=== PATIENT | female | born 1955 | race Caucasian/White ===

== ENCOUNTER → 2017-12-30 14:45 | Day surgery (SDC) | payer MEDICARE, MEDICAID ==
--- NOTE | 2017-12-30 07:56 | HP ---
CC: Silvino Pop MD * ADMITTING HISTORY AND PHYSICAL: DATE OF ADMISSION: 12/30/17 ADMITTING DIAGNOSES: 1. Hematuria. 2. Multiple calculi, right ureter. 3. Right hydronephrosis. PLANNED PROCEDURE: Right ureteroscopy, possible laser and stent insertion. SURGEON: Dr. Teresa. HISTORY OF PRESENT ILLNESS: Roz Diaz is a 62-year-old lady, who was referred by Dr. Pop for microscopic hematuria. Initially, she had a renal sonogram done at [facility], which was reported as normal. She was then evaluated for an episode for gross hematuria and on cystoscopy, I could see hematuria coming from the right ureteral orifice. Because of this, CT urogram was obtained, which reveals right hydronephrosis secondary to multiple calculi in the right distal ureter. PAST MEDICAL HISTORY: Significant for cervical carcinoma, treated with radiation therapy in 1989 and recent autoimmune issues for which she has been evaluated by Dr. Pop. PAST SURGICAL HISTORY: Significant for fusion of the lumbar spine and cervical spine, hysterectomy, and bowel resection. MEDICATIONS: On admission: 1. Meloxicam 7.5 mg daily. 2. Gabapentin 100 mg daily. 3. Imodium p.r.n. ALLERGIES AND INTOLERANCES: PENICILLIN, FLEXERIL, SULFA, HYDROCODONE, METHADONE , PROPOXYPHENE. SOCIAL HISTORY: Smoking history: She has a chronic [id number] smoking history. REVIEW OF SYSTEMS: She denies any chest pain or shortness of breath. There is no history of diabetes mellitus or any other major systemic illness. PHYSICAL EXAMINATION GENERAL: Reveals a pleasant, uncomfortable, middle-aged lady. VITAL SIGNS: Blood pressure is 140/90, pulse 90 per minute, oxygen saturation 98% on room air. LUNGS: Clear bilaterally. CARDIOVASCULAR: Regular rate and rhythm. S1, S2. ABDOMEN: Soft with mild right flank tenderness. IMPRESSION: A 62-year-old lady with gross hematuria and right hydronephrosis secondary to multiple calculi in the right distal ureter. PLAN: Planned procedure is right ureteroscopy, possible laser and stent insertion. [id number]/[facility] #: [id number] MTDD
[~2017-12-30 14:45] MED LIST: Buffered Lidocaine 0.9% SYRIN* 5 ML/SYR SYRINGE INTRADERM ONE; Dexamethasone IV* 4 MG/ML 1 ML (4 MG) ONE; DiMENhydriNATE IV* 50 MG/ML VIAL IV PUSH PRN; EPHEDrine (Pressors)* 50 MG/ML VIAL ONE; Famotidine TAB* 20 MG ONE; Famotidine TAB* 20 MG PO ONE; Gentamicin ADULT (*) 120 MG in NS 0.9% 100 ML* 100 ML IVPB ONE; Iohexol 180 (CONTRAST) 10 ML SDV IV ONE; Levofloxacin 500 MG IVPREMIX(* 500 MG/100 ML BAG IVPB ONE; Lidocaine 2% PF * 5 ML VIAL ONE; Midazolam* 1 MG/ML 5 ML VIAL (5 MG) ONE; Morphine INJ* 2 MG/ML 1 ML CARPUJECT IV PRN; Naloxone* 0.4 MG/ML 1 ML VIAL IV PRN; Ondansetron INJ* 2 MG/ML VIAL ONE; PROCHLORPERAZINE INJ 5 MG/ML 2 ML VIAL IV PRN; Propofol* 10 MG/ML 20 ML BTL IV PUSH ONE; Scopolamine 1.5 mg* PATCH TRANSDERM PRN; Scopolamine PATCH Remove* 1 NOTE MISC PATCH OFF ONE; fentaNYL* 50 MCG/ML 2 ML VIAL (100 MCG VIAL) IV PRN; fentaNYL* 50 MCG/ML 2 ML VIAL (100 MCG VIAL) ONE; oxyCODONE/Acetamin 5/325 MG* TAB PO PRN
--- NOTE | 2017-12-30 19:27 | RAD ---
INDICATION: Right ureteroscopy, possible laser and stent insertion. COMPARISON: Comparison is made with a prior CT urogram from December 29, 2017. TECHNIQUE: 20 seconds of intermittent fluoroscopic guidance were provided and 6 spot films of the abdomen were centered on the right side. FINDINGS: There is partial opacification of the right renal collecting system. Subsequently there is placement of a double-J stent catheter on the right side. IMPRESSION: INTRAOPERATIVE CONTROL FILMS. CPT II Codes: G9500
[2017-12-30 20:17] VITALS: BP 137/77
--- NOTE | 2017-12-30 23:30 | OP ---
CC: Silvino Ppo MD * DATE OF OPERATION: 12/30/17 - [facility] DATE OF : 55 SURGEON: Timmy Teresa MD ANESTHESIOLOGIST: Dr. Bacon. ANESTHESIA: General. PRE-OP DIAGNOSIS: 1. Right hydronephrosis. 2. Multiple calculi, right distal ureter. POST-OP DIAGNOSIS: 1. Right hydronephrosis. 2. Multiple calculi, right distal ureter. 3. Stricture right distal ureter. OPERATIVE PROCEDURE: Cystoscopy, right retrograde pyelogram, right ureteroscopy , laser lithotripsy of multiple right ureteral calculi and right stent insertion. COMPLICATIONS: None. INDICATIONS: Roz Diaz is a 62-year-old lady who was evaluated for hematuria and noted to have multiple right ureteral obstructing calculi. OPERATIVE FINDINGS: 1. Stricture distal right ureter. 2. Multiple (6 to 7) calculi impacted in entire distal right ureter with severe hydronephrosis and hydroureter. STENT USED: An 8-Polish stent right ureter. POSTOPERATIVE CONDITION: Stable. DESCRIPTION OF PROCEDURE: After induction of general anesthesia, the patient was placed in dorsal lithotomy position. Sequential compression devices were in place and functioning. Initial cystoscopy revealed changes consistent with radiation therapy throughout the bladder. The right orifice was identified, initially a guidewire was advanced into the right orifice, however, the stones were noted to be completely impacted and multiple attempts at advancing the wire unsuccessful. Finally I introduced the ureteroscope and was able to advance the wire through the ureteroscope alongside the impacted calculi into the proximal ureter. Retrograde pyelogram revealed hydronephrosis and proximal hydroureter with a tortuous mid to distal ureter. The entire lower segment of the ureter appears involved with a stricture with multiple large calculi impacted in it. Using a 550 micron holmium laser, these were successfully broken up into multiple tiny fragments. A lot of the fragments flushed out during the procedure. An 8-Polish stent was then introduced and positioned under fluoroscopy with good proximal and distal positioning obtained. My plan is to leave the stent in for a few weeks and then to bring her back for a followup procedure to check on the stricture and see if this is going to require any balloon dilatation later on. The patient tolerated the procedure satisfactorily and was transferred back to recovery area in stable condition. [id number]/[facility] #: [id number] [facility]
== END | disposition home or self-care (01) ==
LOC: OR 14:45
PROVIDERS: ATTEND Urology
DX: N13.2 Hydronephrosis with renal and ureteral calculous obstruction (principal); N13.1 Hydronephrosis with ureteral stricture, not elsewhere classified; R31.0 Gross hematuria; Z85.41 Personal history of malignant neoplasm of cervix uteri; Z72.0 Tobacco use
CPT/HCPCS: 74420; A9270-GY; C1876; J1100; J1580; J1956; J2250; J2405; J2704; J3010

== ENCOUNTER 2018-01-10 07:42 | Day surgery (SDC) | payer MEDICARE, MEDICAID ==
[~2018-01-10 07:42] MED LIST changes: -Dexamethasone IV* 4 MG/ML 1 ML (4 MG) ONE; -DiMENhydriNATE IV* 50 MG/ML VIAL IV PUSH PRN; -EPHEDrine (Pressors)* 50 MG/ML VIAL ONE; -Famotidine TAB* 20 MG ONE; -Famotidine TAB* 20 MG PO ONE; -Gentamicin ADULT (*) 120 MG in NS 0.9% 100 ML* 100 ML IVPB ONE; +Gentamicin ADULT (*) 140 MG in NS 0.9% 100 ML* 100 ML IVPB ONE; -Iohexol 180 (CONTRAST) 10 ML SDV IV ONE; -Levofloxacin 500 MG IVPREMIX(* 500 MG/100 ML BAG IVPB ONE; -Lidocaine 2% PF * 5 ML VIAL ONE; -Midazolam* 1 MG/ML 5 ML VIAL (5 MG) ONE; -Morphine INJ* 2 MG/ML 1 ML CARPUJECT IV PRN; -Naloxone* 0.4 MG/ML 1 ML VIAL IV PRN; -Ondansetron INJ* 2 MG/ML VIAL ONE; -PROCHLORPERAZINE INJ 5 MG/ML 2 ML VIAL IV PRN; -Propofol* 10 MG/ML 20 ML BTL IV PUSH ONE; -Scopolamine 1.5 mg* PATCH TRANSDERM PRN; -Scopolamine PATCH Remove* 1 NOTE MISC PATCH OFF ONE; -fentaNYL* 50 MCG/ML 2 ML VIAL (100 MCG VIAL) IV PRN; -fentaNYL* 50 MCG/ML 2 ML VIAL (100 MCG VIAL) ONE; -oxyCODONE/Acetamin 5/325 MG* TAB PO PRN
[2018-01-10] MEDS ORDERED: Levofloxacin 500 MG IVPREMIX(* 500 MG/100 ML BAG IVPB ONE (07:50)
[2018-01-10] MEDS ORDERED: Buffered Lidocaine 0.9% SYRIN* 5 ML/SYR SYRINGE ONE (07:56)
[2018-01-10] MEDS ORDERED: fentaNYL* 50 MCG/ML 2 ML VIAL (100 MCG VIAL) ONE (08:34)
[2018-01-10] MEDS ORDERED: Midazolam* 1 MG/ML 2 ML VIAL (2 MG) ONE (08:34)
[2018-01-10] MEDS ORDERED: Propofol* 10 MG/ML 20 ML BTL IV PUSH ONE (08:37)
[2018-01-10] MEDS ORDERED: Lidocaine 2% PF * 5 ML VIAL ONE (08:38)
[2018-01-10] MEDS ORDERED: Iohexol 180 (CONTRAST) 10 ML SDV IV ONE (08:59)
[2018-01-10] MEDS ORDERED: oxyCODONE/Acetamin 5/325 MG* TAB PO PRN (09:13)
[2018-01-10] MEDS ORDERED: fentaNYL* 50 MCG/ML 2 ML VIAL (100 MCG VIAL) IV PRN (09:13)
[2018-01-10] MEDS ORDERED: Ondansetron INJ* 2 MG/ML VIAL IV PRN (09:13)
[2018-01-10] MEDS ORDERED: PROCHLORPERAZINE INJ 5 MG/ML 2 ML VIAL IV PRN (09:13)
[2018-01-10] MEDS ORDERED: Naloxone* 0.4 MG/ML 1 ML VIAL IV PRN (09:13)
[2018-01-10] MEDS ORDERED: HYDROmorphone INJ* 1 MG/ML CARPUJECT SYRINGE IV PRN (09:13)
[2018-01-10] MEDS ORDERED: EPHEDrine (Pressors)* 50 MG/ML VIAL ONE (09:53)
[2018-01-10] MEDS ORDERED: Ondansetron INJ* 2 MG/ML VIAL ONE (09:53)
[2018-01-10] MEDS ORDERED: Ketorolac INJ* 30 MG/ML 1 ML VIAL ONE (09:53)
[2018-01-10 11:28] VITALS: BP 129/73
--- NOTE | 2018-01-10 11:45 | RAD ---
CPT II Codes: G9500 INDICATION: Right ureteral stent exchange Fluoroscopic services provided for referring physician. 7 seconds of fluoroscopy time was used. 3 spot images demonstrates exchange of a right ureteral stent. IMPRESSION: Exchange of right ureteral stent.
--- NOTE | 2018-01-10 13:06 | OP ---
CC: Dr. Pop * DATE OF OPERATION: 01/10/18 - [facility] DATE OF : 55 SURGEON: Timmy Teresa MD ANESTHESIOLOGIST: Dr. Gay. ANESTHESIA: General PRE-OP DIAGNOSES: 1. Right hydronephrosis. 2. Multiple calculi, right ureter. POST-OP DIAGNOSES: 1. Right hydronephrosis. 2. Multiple calculi, right ureter. OPERATIVE PROCEDURE: 1. Cystoscopy. 2. Right retrograde pyelogram. 3. Right ureteroscopy. 4. Laser lithotripsy and removal of calculi from right ureter and right stent replacement. COMPLICATIONS: None. STENT USED: 8.5-Eritrean 28 cm silicone stent right ureter. OPERATIVE FINDINGS: 1. Stricture, right distal ureter. 2. Multiple right ureteral calculi. POSTOPERATIVE CONDITION: Stable. INDICATIONS: Roz Diaz is a 63-year-old lady who had been evaluated and noted to have multiple obstructing calculi in the right distal ureter associated with a stricture in the right distal ureter. DESCRIPTION OF PROCEDURE: After induction of general anesthesia, the patient was placed in dorsal lithotomy position. Sequential compression devices were in place and functioning. Initial cystoscopy revealed a previously placed stent exiting from the right orifice, this was grasped and removed intact without difficulty. Right retrograde pyelogram revealed right hydronephrosis. A 6-Eritrean semi- rigid ureteroscope was introduced into the right ureter. As noted previously, there was stricture involving the distal 3 to 4 cm of the right ureter with blanched avascular mucosa and multiple calculi and calculi fragments noted in the distal ureter. Using a 550 micron holmium laser, the stones were all broken up into smaller fragments and all of the fragments were removed. There may have been 1 or 2 smaller fragments, which migrated proximally, but other than all of the fragments that were visible were removed. An 8.5-Eritrean 28 cm silicone stent was introduced and positioned under fluoroscopy with good proximal and distal positioning obtained. The reason I chose to place an all silicone stent is because of the stricture and my concern that she may require potentially usp stenting because of risk of recurrent stricture after stent removal. The patient tolerated the procedure satisfactorily and was transferred back to the recovery area in stable condition. [id number]/[facility] #: [id number] [facility]
--- NOTE | 2018-01-10 14:04 | RAD ---
Indication: Postop right ureteral stent exchange. Flat plate of the abdomen demonstrates right ureteral stent in place. Calcification are noted in the right renal pelvis. Posterior fusion rods are in place. IMPRESSION: Right ureteral stent in place. Calcification overlying the right renal pelvis. Posterior fusion rods are noted.
== END 2018-01-10 11:48 | disposition home or self-care (01) ==
LOC: OR 07:42
PROVIDERS: ATTEND Urology
DX: N13.2 Hydronephrosis with renal and ureteral calculous obstruction (principal); F17.210 Nicotine dependence, cigarettes, uncomplicated; Z85.41 Personal history of malignant neoplasm of cervix uteri; F41.8 Other specified anxiety disorders; G89.29 Other chronic pain; D89.89 Other specified disorders involving the immune mechanism, not elsewhere classified
CPT/HCPCS: 74018; 74420; 82365; 88300; C1876; J1580; J1885; J1956; J2250; J2405; J2704; J3010

== ENCOUNTER → 2018-06-06 07:15 | Day surgery (SDC) | payer MEDICARE, MEDICAID ==
--- NOTE | 2018-06-03 13:14 | HP ---
CC: Dr. Pop * ADMITTING HISTORY AND PHYSICAL: DATE OF ADMISSION: 06/06/18 ADMITTING DIAGNOSES: 1. Right hydronephrosis. 2. Right renal calculus. PLANNED PROCEDURE: Right stent insertion and shockwave lithotripsy of right renal calculus. SURGEON: Dr. Teresa HISTORY OF PRESENT ILLNESS: Roz Diaz is a 63-year-old lady, who had previously been evaluated and treated for obstructing calculus in the right ureter. She was recently seen in followup and was noted to have right hydronephrosis and a 9 to 10 mm calculus in the right kidney, in the right renal pelvis. She complains of intermittent right flank pain and is now being brought in for treatment of the calculus. PAST MEDICAL HISTORY: Significant for: 1. Cervical cancer, diagnosed in 1989 and treated with radiation therapy. 2. History of renal calculi. 3. Rheumatoid arthritis. PAST SURGICAL HISTORY: Significant for right ureteroscopy, laser and stent in December of 2017, lower back fusion, and cervical spine fusion, and total abdominal hysterectomy, and bowel resection. MEDICATIONS: On admission, none. ALLERGIES AND INTOLERANCES: PENICILLIN, FLEXERIL, SULFA, HYDROCODONE, METHADONE , PROPOXYPHENE. FAMILY HISTORY: Negative for stone. SOCIAL HISTORY: Smoking history: She is a chronic smoker with a 40 plus pack year history of smoking. PHYSICAL EXAMINATION GENERAL: Reveals a pleasant, middle-aged lady. VITAL SIGNS: Blood pressure is 110/72, pulse 73 per minute, regular, oxygen saturation 98% on room air. LUNGS: Clear bilaterally. CARDIOVASCULAR: Regular rate and rhythm. S1, S2. ABDOMEN: Soft with right flank tenderness. IMPRESSION: A 63-year-old lady with a 9 to 10 mm calculus of the right renal pelvis with right hydronephrosis. PLAN: Planned procedure is right stent insertion and shockwave lithotripsy of right renal calculus. [id number]/[facility] #: [id number] MTDD
[~2018-06-06 07:15] MED LIST changes: +Acetaminophen TAB* 325 MG PO PRN; +Dexamethasone IV* 4 MG/ML 1 ML (4 MG) ONE; +DiMENhydriNATE IV* 50 MG/ML VIAL IV PUSH PRN; +DiMENhydriNATE IV* 50 MG/ML VIAL ONE; +Famotidine IV* 10 MG/ML 2 ML (20 mg) IV ONE; +Famotidine IV* 10 MG/ML 2 ML (20 mg) ONE; -Gentamicin ADULT (*) 140 MG in NS 0.9% 100 ML* 100 ML IVPB ONE; +HYDROmorphone INJ1* 1 MG/ML SYRINGE IV PRN; +Ketorolac INJ* 30 MG/ML 1 ML VIAL ONE; +Levofloxacin 500 MG IVPREMIX(* 500 MG/100 ML BAG IVPB ONE; +Lidocaine 2% PF * 5 ML VIAL ONE; +Midazolam* 1 MG/ML 2 ML VIAL (2 MG) ONE; +Naloxone* 0.4 MG/ML 1 ML VIAL IV PRN; +Ondansetron INJ* 2 MG/ML VIAL ONE; +Propofol* 10 MG/ML 20 ML BTL IV PUSH ONE; +fentaNYL* 50 MCG/ML 2 ML VIAL (100 MCG VIAL) ONE
--- NOTE | 2018-06-06 08:16 | RAD ---
INDICATION: Right renal calculus COMPARISON: KUB dated April 22, 2018 TECHNIQUE: 2 views the abdomen were obtained. FINDINGS: Overlying the right mid level abdomen is a 5 mm calcification that potentially could be within the right mid level ureter. There are no large calcifications overlying either collecting system. A large amount of stool is noted overlying the descending colon and proximal sigmoid colon. Lower lumbar orthopedic hardware is noted. IMPRESSION:5 MM CALCIFICATION OVERLYING THE MID-LEVEL RIGHT ABDOMEN, UNCHANGED IN THE PREVIOUS KUB, POTENTIALLY IS LOCATED WITHIN THE RIGHT URETER.
[2018-06-06 11:01] VITALS: BP 113/80
--- NOTE | 2018-06-06 13:10 | RAD ---
Indication: Post RIGHT stent placement after ESWL. Comparison: 0724 hours June 06, 2018 Technique: Supine view of the abdomen. Report: Previous stone at the level of the lower pole of the RIGHT kidney on the prior exam is no longer visualized however it may be obscured due to bowel contents. RIGHT ureteral stent in place. No suspicious calcifications along the course of the stent. Unremarkable bowel gas pattern. Postsurgical change of anterior and posterior multilevel lumbar sacral spine fusion. IMPRESSION: #. Previous stone at the level of the lower pole of the RIGHT kidney on the prior exam is no longer visualized however it may be obscured due to bowel contents. RIGHT ureteral stent in place. No suspicious calcifications along the course of the stent.
--- NOTE | 2018-06-06 22:18 | OP ---
CC: Silvino Pop MD; Leila Jane NP * DATE OF OPERATION: 06/06/18 - [facility] DATE OF : 55 SURGEON: Timmy Teresa MD ANESTHESIOLOGIST: Dr. Rodríguez. ANESTHESIA: General. PRE-OP DIAGNOSES: 1. Right hydronephrosis. 2. Right renal calculus. POST-OP DIAGNOSES: 1. Right hydronephrosis. 2. Right renal calculus. 3. Stricture right distal ureter. OPERATIVE PROCEDURE: 1. Shockwave lithotripsy, right renal calculus. 2. Right ureteroscopy, balloon dilatation, right stent insertion, and right retrograde pyelogram. COMPLICATIONS: None. STENT USED: A 6-Kinyarwanda stent right ureter. INDICATIONS: Roz Diaz is a 63-year-old lady with a history of recurrent renal calculi. She was recently noted to have a calculus in the right renal pelvis and right hydronephrosis. OPERATIVE FINDINGS: 1. Stricture right distal ureter causing severe right hydronephrosis and hydroureter (the patient is status post radiation therapy for pelvic malignancy) . 2. Calculus right renal pelvis. POSTOPERATIVE CONDITION: Stable. DESCRIPTION OF PROCEDURE: After induction of general anesthesia, the patient was placed on the lithotripsy table in supine position. The calculus in the area of the right renal pelvis was identified on fluoroscopy. Shockwave lithotripsy was commenced at a rate of 60 shocks per minute. After the initial 300 shocks, there was a brief pause in lithotripsy for several minutes in an effort to minimize any potential trauma to the kidney. Lithotripsy was then resumed, the stone was readily friable and only required 600 shocks for fragmentation. Next, the patient was placed in dorsal lithotomy position and cystoscopy was performed. There was a holdup noted for progression of the wire in the distal ureter and retrograde pyelogram revealed severe right hydronephrosis and a significantly dilated ureter all the way down too close to the ureterovesical junction. A semirigid ureteroscope was introduced and a stricture was noted in the distal part of the ureter with no evidence of any calculus or any mucosal lesions. Balloon dilatation of the entire distal ureter was successfully carried out under fluoroscopy and a 6-Kinyarwanda stent was placed with good proximal and distal positioning obtained. The patient tolerated the procedure satisfactorily and was transferred back to the recovery area in stable condition. [id number]/[facility] #: [id number] [facility]ENTER[facility] Isabel
== END | disposition home or self-care (01) ==
LOC: OR 07:15
PROVIDERS: ATTEND Urology
DX: N13.1 Hydronephrosis with ureteral stricture, not elsewhere classified (principal); N20.0 Calculus of kidney; Z85.41 Personal history of malignant neoplasm of cervix uteri; M06.9 Rheumatoid arthritis, unspecified; Z72.0 Tobacco use; M19.90 Unspecified osteoarthritis, unspecified site
CPT/HCPCS: 74018; C1876; J1100; J1240; J1885; J1956; J2250; J2405; J2704; J3010

== ENCOUNTER 2019-12-21 16:14 | Emergency (ER) | payer MEDICARE, MEDICAID ==
--- NOTE | 2019-12-21 16:37 | UC ---
Headache HPI - HPI Summary HPI Summary: 64yo female presenting with right side episcopalian pain, headache, and jaw pain x3 days. Patient states she also has had left sided neck pain and intermittent jaw pain x4 weeks. States "everything is so much worse the past few days." Describes a frontal MIDDELTON and states her right episcopalian "feels like there is a worm in it." Notes tenderness to palpation of the right episcopalian and left side neck and states the pain will radiate to all of her scalp. States the pain in jaw and episcopalian is 20/10. States she is having difficulty opening her mouth wide enough to even put her dentures in. Denies vision changes. Denies fever and chills. Denies anything like this in the past. PMHx significant for cervical CA. - History Of Current Complaint Stated Complaint: HEADACHE Hx Obtained From: Patient - Allergies/Home Medications Allergies/Adverse Reactions: Allergies Allergy/AdvReac Type Severity Reaction Status Date / Time cyclobenzaprine Allergy Severe Palpitation Verified 12/21/19 17:47 [From Flexeril] s hydrocodone Allergy Severe Vomiting Verified 12/21/19 17:47 methadone Allergy Severe Nausea And Verified 12/21/19 17:47 Vomiting Penicillins Allergy Severe Anaphylatic Verified 12/21/19 17:47 Shock propoxyphene [From Darvon] Allergy Severe Hallucinati Verified 12/21/19 17:47 ons Sulfa (Sulfonamide Allergy Severe Anaphylatic Verified 12/21/19 17:47 Antibiotics) Shock tizanidine Allergy Severe Hallucinati Verified 12/21/19 17:47 ons latex Allergy Unknown Rash Verified 12/21/19 17:47 Home Medications: Home Medications Calcium Carb, Citrate/Vit D3 [Calcium + D3 ER Tablet] 1 tab PO QAM 01/05/18 [ History Confirmed 12/21/19] Cholecalciferol (Vitamin D3) [Vitamin D3] 1,000 units PO QAM 01/05/18 [History Confirmed 12/21/19] Cyanocobalamin TAB* [Vitamin B12 TAB*] 1 tab PO DAILY 01/05/18 [History Confirmed 12/21/19] Loperamide HCl [Imodium A-D] 2 mg PO DAILY 01/05/18 [History Confirmed 12/21/19] [place]-3S/Dha/Epa/Fish Oil [Fish Oil 1,200 mg Softgel] 1 tab PO QAM 01/05/18 [ History Confirmed 12/21/19] Lidocaine 1 patch TOPICAL ONCE PRN 12/21/19 [History Confirmed 12/21/19] Tramadol HCl 1 tab PO ONCE PRN 12/21/19 [History Confirmed 12/21/19] PMH/Surg Hx/FS Hx/Imm Hx Cancer History: Cervical Cancer - Surgical History Surgical History: Yes Surgery Procedure, Year, and Place: [facility],1996. COLECTOMY, 1996. PARTIAL HYSTERECTOMY - [facility] [employer]. L SPINE FUSION, 2012, 14, 15,16. cervical fusion 2000. teeth extraction 2004. 1980s, right leg bx. 2018, renal calculus , [facility]. 2019 right ureteral stent and ESWL - Family History Known Family History: Positive: Cardiac Disease - Social History Alcohol Use: Occasionally Substance Use Type: Marijuana Smoking Status (MU): Light Every Day Tobacco Smoker Amount Used/How Often: 1/2 pack a day for 18 yrs Review of Systems All Other Systems Reviewed And Are Negative: Yes Constitutional: Positive: Negative Skin: Positive: Other - "worm in her right episcopalian," "pain in scalp" Eyes: Positive: Negative. Negative: Blurred Vision Respiratory: Positive: Negative Cardiovascular: Positive: Negative Gastrointestinal: Positive: Negative Musculoskeletal: Positive: Arthralgia - "jaw pain", Decreased ROM - jaw Neurological/Mental Status: Positive: Headache - frontal MIDDLETON with L side neck pain and R episcopalian pain" Psychological: Positive: Anxious Physical Exam - Summary Physical Exam Summary: Vital Signs Reviewed: Yes A+Ox3, no distress, appears older than states age Eyes: Conjunctiva Clear, RODNEY. EOM intact and full ENT: Hearing grossly normal, TM x 2 clear, moist, uvula midline, no exudate, no erythema Neck: Positive: Supple, +TTP of b/l neck muscles Respiratory: Positive: No respiratory distress, No accessory muscle use + CTA throughout no w/r Cardiovascular: RRR nl s1, s2 no m/r, palpable R temporal artery with TTP, no overlying erythema Musculoskeletal Exam: COOK x 4 without difficulty, unable to fully depress mandible d/t pain Neurological: Positive: Alert, + sensation throughout, CN II-XII intact, negative romberg Psychological: Positive: age appropriate behavior Skin: Positive: no rash, no ecchymosis Vital Signs: Vital Signs (72 hours) 12/21/19 16:21 Temperature 99.0 F Pulse Rate 98 Respiratory 18 Rate Blood Pressure 128/90 (mmHg) O2 Sat by Pulse 96 Oximetry Headache Course/Dx - Course Course Of Treatment: 64yo female presenting with right side episcopalian pain, headache, and jaw pain x3 days. Patient states she also has had left sided neck pain and intermittent jaw pain x4 weeks. States "everything is so much worse the past few days." Describes a frontal MIDDLETON and states her right episcopalian "feels like there is a worm in it." Notes tenderness to palpation of the right episcopalian and left side neck and states the pain will radiate to all of her scalp. States the pain in jaw and episcopalian is 20/10. States she is having difficulty opening her mouth wide enough to even put her dentures in. Denies vision changes. Denies fever and chills. Denies anything like this in the past. PMHx significant for cervical CA. Patient VS normal. Neuro exam WNL. Discussed with patient concern for temporal arteritis based on history and PE findings. Informed her that she needs to be seen in the ED immediately for further evaluation and work up. Patient declined transfer via ambulance numerous times. Patient understanding and states she will drive herself to the emergency room upon departure from the urgent care. All questions answered to best of my ability. I discussed this patient with Dr. Woo who also agreed with the plan. - Differential Dx/Diagnosis Differential Diagnosis/HQI/PQRI: Migraine, Temporal Arteritis, Tension Headache Provider Diagnosis: Headache, Jaw claudication Discharge ED - Sign-Out/Discharge Documenting (check all that apply): Patient Departure All imaging exams completed and their final reports reviewed: No Studies - Discharge Plan Condition: Stable Disposition: HOME-RECOMMEND TO ED Patient Education Materials: Acute Headache (ED) Referrals: Leila Jane NP [Primary Care Provider] - Additional Instructions: The provider that evaluated you today thinks that you need additional testing that can be completed in the emergency department. It is recommended that you go directly to emergency department for further evaluation. This evaluation included blood work or imaging. This testing will be directed and decided by the provider that evaluates you at the emergency department. If pain becomes worse, you feel lightheaded, you have uncontrolled vomiting, or you have any other concerns while you are being driven to emergency department it is recommended to pullover and contact 911. - Billing Disposition and Condition Condition: STABLE Disposition: Home-Recommend to ED - Attestation Statements Provider Attestation: This patient was not seen by me. I was available for consult. Chart reviewed. NATHALY
[2019-12-21 16:44] VITALS: BP 128/90
== END 2019-12-21 17:24 | disposition home health service (06) ==
LOC: UCEAST 16:14
DX: R51 Headache (principal); M26.609 Unspecified temporomandibular joint disorder, unspecified side; Z88.8 Allergy status to other drugs, medicaments and biological substances; Z91.040 Latex allergy status; Z88.5 Allergy status to narcotic agent; Z88.0 Allergy status to penicillin; Z91.013 Allergy to seafood; M31.6 Other giant cell arteritis; F17.210 Nicotine dependence, cigarettes, uncomplicated; Z87.442 Personal history of urinary calculi; Z79.899 Other long term (current) drug therapy; Z88.2 Allergy status to sulfonamides; Z85.41 Personal history of malignant neoplasm of cervix uteri
CPT/HCPCS: 99212; G0463

== ENCOUNTER 2019-12-21 17:39 | Emergency (ER) | payer MEDICARE, MEDICAID ==
--- OUTSIDE RECORDS SUMMARY | 2019-12-21 17:57 | XMS REPORT | Continuity of Care Document ---
:1955 External Reference #:[id number] Author Name Derrick Telles MD (transmitted by agent of provider Quita Hill) Address [address], [place] [address] Care Team Providers Name Role Phone Leila Jane [employer] - Nurse Care Team Information [employer] [phone] Practitioner Problems Description No Information Available Social History Type Date Description Comments Sex Unknown Tobacco Use Start: Unknown current cigarette smoker Tobacco Use Start: Unknown Light tobacco smoker (10 or fewer cigarettes/day) ETOH Use Occasionally consumes alcohol Tobacco Use Start: Unknown Patient is a current smoker, smokes every day Recreational Drug Use Denies Drug Use Tobacco Use Start: Unknown Light tobacco smoker (10 or fewer cigarettes/day) Smoking Status Reviewed: 07/26/19 Light tobacco smoker (10 or fewer cigarettes/day) Exercise Type/Frequency Does not exercise Allergies, Adverse Reactions, Alerts Active Allergies Reaction Severity Comments Date Hydrocodone 07/22/2017 Penicillin 07/22/2017 Methadone 07/22/2017 Flexeril 07/22/2017 Propoxyphene 07/22/2017 Sulfa Drugs Restless Legs 07/22/2017 Medications Active Medications SIG Qnty Indications Ordering Date Provider Tramadol HCL take 1 tablet two 28tabs M54.41 Leila Jane, 07/26/2019 50mg times daily as [employer] Tablets needed for pain do not drive while taking this medication Tizanidine HCL take 1 tablet by 60tabs M54.41 Leila Jane, 07/26/2019 2mg mouth 3 times as [employer] Tablets needed for muscle pain, spasms Reclast 5 mg IV infusion 1 100ml M85.9 Kim Ballesteros MD 07/26/2019 5mg/100ML x yearly Solution 1St Medx-Patch/ use 1 patch daily 10units M54.41 Leila Jane, 07/05/2019 Lidocaine on o low back for [employer]ATOR 12 hours on and 12 4-0.025-5-20% hour off Patches Vitamin D3 Ultra 1 by mouth every 90caps Leila Jane, 03/15/2019 Strength day [employer] 5000Unit Capsules B12 Fast Dissolve Sublingual daily 90tabs Silvino Sharpdor, 08/07/2017 M.DMechelle 5000mcg Tablets Dispers Imodium A-D 1 by mouth twice a Unknown 2mg day, as needed Capsules diarrhea Calcium + D 1 by mouth every Unknown day [id number] Tablets Fish Oil 1 tab by mouth Unknown 1000mg every morning Capsules Vitamin E 1 tablet daily Unknown 100Unit Capsules History Medications Tramadol HCL take 1 tablet at 7tabs M54.41 Leila Jane, 07/05/2019 - 50mg night as needed for [employer] 12/05/2019 Tablets pain do not drive while taking this medication Medications Administered in Office Medication SIG Qnty Indications [facility]ing Provider [facility] Leila Jane, [employer] 03/08/2019 Injection Immunizations CPT Code Status Date Vaccine Reaction Lot # [id number] Given 05/01/2019 Tdap - pt. tolerated well. [id number] Tetanus/Diptheria/Acellular Pertussis 99815 Given 03/29/2019 Pneumonia Vaccine shot tolerated well, no [id number] immediate reaction [id number] Given 02/23/2018 Pneumococcal Conjugate [id number] Vaccine 13 Valent For Intramuscular Use Vital Signs Date Vital Result Comment 07/26/2019 3:45pm Height 60.25 inches 5'0.25" Weight 89.50 lb Heart Rate 101 /min BP Systolic 114 mmHg BP Diastolic 84 mmHg Body Temperature 97.6 F O2 % BldC Oximetry 95 % BMI (Body Mass Index) 17.3 kg/m2 07/05/2019 10:15am Height 60.25 inches 5'0.25" Weight 85.00 lb Heart Rate 78 /min BP Systolic 131 mmHg BP Diastolic 77 mmHg Body Temperature 97.5 F O2 % BldC Oximetry 97 % BMI (Body Mass Index) 16.5 kg/m2 Results Test Acquired Date Facility Test Result H/L Range Note Laboratory test 07/26/2019 [facility] Vitamin D 27.0 ng/mL Normal 20-50 [address] [place] [address] [phone] Laboratory test 07/05/2019 [facility] Vitamin D 29.8 ng/mL Normal 20-[address] [place] [address] [phone] Urine Culture And 07/05/2019 [facility] Urine Culture SEE RESULT [address] [place] [address] [phone] Urine Culture And 07/05/2019 [facility] Urine Culture SEE RESULT 4, [address] [place] [address] [phone] Ua Routine 07/05/2019 [facility] Ua Specific 1.010 [place] Ua PH 5 Ua Color light yellow Ua Appera clear Ua WBC trace Ua Protein negative Ua Glucose normal Ua Ketones negative Ua Bilirubin negative Ua Urobilinogen normal Ua Nitrite negative Ua Occult Blood trace 1 Total 25-Hydroxyvitamin D2 and D3 (25-OH-VitD) <10 ng/mL (severe deficiency) 10-19 ng/mL (mild to moderate deficiency) 20-50 ng/mL (optimum levels) 51-80 ng/mL (increased risk of hypercalciuria) >80 ng/mL (toxicity possible) 2 Total 25-Hydroxyvitamin D2 and D3 (25-OH-VitD) <10 ng/mL (severe deficiency) 10-19 ng/mL (mild to moderate deficiency) 20-50 ng/mL (optimum levels) 51-80 ng/mL (increased risk of hypercalciuria) >80 ng/mL (toxicity possible) 3 SEE RESULT BELOW Name: NEMO THORNTON : [address]: Leila Jane NP Acct: [id number] Unit: [id number] AGE: 64 Location: [facility] Re07/05/19 SEX: F Status: REG REF SPEC: [id number] EMMA: 07/05/[address]: Leila Jane NP REQ: [id number] RECD: 07/05/19 STATUS: COMP _ SOURCE: URINE SPDESC: ORDERED: Urine Culture Procedure Result Reported Site Urine Culture Final 07/06/19- 1602 ML No Growth (<1,000 CFU/mL) * ML - Main Lab . END OF REPORT DEPARTMENT OF PATHOLOGY, [address] [place] [address] Lan Espinoza M.D. Director [facility] # [id number] 4 [id number] 5 SEE RESULT BELOW Name: NEMO THORNTON : [address]: Leila Jane NP Acct: [id number] Unit: [id number] AGE: 64 Location: [facility] Re07/05/19 SEX: F Status: REG REF SPEC: [id number] EMMA: 07/05/[address]: Leila Jane NP REQ: [id number] RECD: 07/05/19 STATUS: COMP _ SOURCE: URINE SPDESC: ORDERED: Urine Culture COMMENTS: [id number] Urine Source: Random Procedure Result Reported Site Urine Culture Final 07/06/19- 1311 ML No Growth (<1,000 CFU/mL) * ML - Main Lab . END OF REPORT DEPARTMENT OF PATHOLOGY, [address] [place] [address] Lan Espinoza M.D. Director [facility] # [id number] Procedures Date Code Description Status 07/07/2019 [id number] Bone Mineral Density Test Completed 04/28/2019 [id number] Mammogram Completed 04/18/2019 [id number] Diabetic Retinal Eye Exam Completed 03/29/2018 [id number] Mammogram Completed 01/27/2018 [id number] Diabetic Retinal Eye Exam Completed 08/24/2017 [id number] Bone Mineral Density Test Completed Medical Devices Description No Information Available Encounters Type Date Location Provider Dx Diagnosis Office Visit 07/26/2019 [facility] Internal Rodriguez Simon.[email or web address] Lumbago with 3:40p Medicine - [facility] [employer] sciatica, right side E55.9 Vitamin D deficiency, unspecified M85.9 Disorder of bone density and structure, unspecified Office Visit 07/05/2019 10:[facility]a [facility] Gena [email or web address] Lumbago with Medicine - [facility] [employer] sciatica, right side E55.9 Vitamin D deficiency, unspecified R30.0 Dysuria N20.0 Calculus of kidney F17.200 Nicotine dependence, unspecified, uncomplicated M85.89 Oth disrd of bone density and structure, multiple sites Assessments Date Code Description Provider 07/26/2019 M54.41 Lumbago with sciatica, right side Zsofia Buck, [employer]ATOR 07/26/2019 E55.9 Vitamin D deficiency, unspecified Zsofia Buck, [employer] OPERATOR 07/26/2019 M85.9 Disorder of bone density and structure, Zsofia Buck, [employer] OPERATOR unspecified 07/05/2019 M54.41 Lumbago with sciatica, right side Zsofia Buck, [employer] OPERATOR 07/05/2019 E55.9 Vitamin D deficiency, unspecified Zsofia Buck, [employer] OPERATOR 07/05/2019 R30.0 Dysuria Zsofia Buck, [employer] OPERATOR 07/05/2019 N20.0 Calculus of kidney Zsofia Buck, [employer] OPERATOR 07/05/2019 F17.200 Nicotine dependence, unspecified, uncomplicated Zsofia Buck, [employer] OPERATOR 07/05/2019 M85.89 Other specified disorders of bone density and Zsofia Buck, [employer] OPERATOR structure, multiple sites Plan of Treatment No Information Available Functional Status Description No Information Available Mental Status Description No Information Available Referrals Refer to Reason for Referral Status Appt Date Derrick Telles MD Sent [address] [place] [address] [place] [address] [phone]
--- NOTE | 2019-12-21 18:07 | ED ---
Complex/Multi-Sys Presentation - HPI Summary HPI Summary: Patient is a 64 y/o F presenting to the ED for a chief complaint of headache that began 3 months ago which she initially believed was related to her vision. Patient reports left-sided neck pain that radiates to the occipital region and difficulty moving the jaw. On 12/20/19, patient noticed a lump on the back of the neck/occipital region that she describes as a vein. She reports right-sided facial pain that worsens with eating that began on 12/20/19 and continued into 12/21/19. Patient denies ear pain, nausea, vomiting, or blurred vision. She denies recent head injury. No alleviating factors are reported. Previously, patient was seen at Urgent Care and recommended to be seen at [facility]. Recently, patient saw Dr. 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 PMHx is significant for a cervical cancer for which she had radiation therapy. She states her health problems are related to being over- radiated during the radiation therapy. History of cardiac disease, COPD, or asthma is denied. PSHx is significant for cervical fusion 19 years ago. FMHx is significant for cardiac disease. She admits tobacco use. - History Of Current Complaint Chief Complaint: EDHeadache Time Seen by Provider: 12/21/19 17:56 Hx Obtained From: Patient Onset/Duration: Sudden Onset, Still Present Timing: Weeks Severity Currently: Moderate Severity Initially: Moderate Associated Signs And Symptoms: Positive: Headache. Negative: Nausea, Vomiting - Allergies/Home Medications Allergies/Adverse Reactions: Allergies Allergy/AdvReac Type Severity Reaction Status Date / Time cyclobenzaprine Allergy Severe Palpitation Verified 12/21/19 17:47 [From Flexeril] s hydrocodone Allergy Severe Vomiting Verified 12/21/19 17:47 methadone Allergy Severe Nausea And Verified 12/21/19 17:47 Vomiting Penicillins Allergy Severe Anaphylatic Verified 12/21/19 17:47 Shock propoxyphene [From Darvon] Allergy Severe Hallucinati Verified 12/21/19 17:47 ons Sulfa (Sulfonamide Allergy Severe Anaphylatic Verified 12/21/19 17:47 Antibiotics) Shock tizanidine Allergy Severe Hallucinati Verified 12/21/19 17:47 ons latex Allergy Unknown Rash Verified 12/21/19 17:47 Home Medications: Home Medications Calcium Carb, Citrate/Vit D3 [Calcium + D3 ER Tablet] 1 tab PO QAM 01/05/18 [ History Confirmed 12/21/19] Cholecalciferol (Vitamin D3) [Vitamin D3] 1,000 units PO QAM 01/05/18 [History Confirmed 12/21/19] Cyanocobalamin TAB* [Vitamin B12 TAB*] 1 tab PO DAILY 01/05/18 [History Confirmed 12/21/19] Loperamide HCl [Imodium A-D] 2 mg PO DAILY 01/05/18 [History Confirmed 12/21/19] Childwold-3S/Dha/Epa/Fish Oil [Fish Oil 1,200 mg Softgel] 1 tab PO QAM 01/05/18 [ History Confirmed 12/21/19] Lidocaine 1 patch TOPICAL ONCE PRN 12/21/19 [History Confirmed 12/21/19] Tramadol HCl 1 tab PO ONCE PRN 12/21/19 [History Confirmed 12/21/19] predniSONE 20 mg TAB [Deltasone 20 MG TAB*] 60 mg PO DAILY #21 tab 12/21/19 [Rx] PMH/Surg Hx/FS Hx/Imm Hx Previously Healthy: Yes Endocrine/Hematology History: Reports: Hx Anemia - as a a teen Denies: Hx Diabetes Cardiovascular History: Denies: Hx Hypertension, Hx Pacemaker/ICD, Other Cardiovascular Problems/ Disorders Respiratory History: Denies: Hx Asthma, Hx Chronic Obstructive Pulmonary Disease (COPD), Other Respiratory Problems/Disorders GI History: Reports: Hx Irritable Bowel, Other GI Disorders - had a large amt of colon resection, uses immodium History: Reports: Hx Kidney Stones - hx and current Denies: Hx Dialysis, Hx Renal Disease, Other Problems/Disorders Musculoskeletal History: Denies: Other Musculoskeletal History Comment Only: Hx Arthritis - abner hands Sensory History: Reports: Hx Contacts or Glasses - reading glasses Denies: Hx Hearing Aid Opthamlomology History: Reports: Hx Contacts or Glasses - reading glasses Neurological History: Reports: Hx Headaches - left side of head x8-9 days Denies: Other Neuro Impairments/Disorders Psychiatric History: Reports: Hx Anxiety - after radiation, no meds, Hx Depression - after radiation, no meds Denies: Hx Panic Disorder - Cancer History Cancer Type, Location and Year: cervical CA. 1979 THROAT SCRAPED VOCAL CORDS Hx Chemotherapy: No Hx Radiation Therapy: Yes - RADIATION LAST DONE 1996 - Surgical History Surgical History: Yes Surgery Procedure, Year, and Place: [facility],1996. COLECTOMY, 1996. PARTIAL HYSTERECTOMY - [facility] [employer]. L SPINE FUSION, 2013, 14, 15,16. cervical fusion 2000. teeth extraction 2004. 1980s, right leg bx. 2018, renal calculus , [facility]. 2019 right ureteral stent and ESWL Hx Anesthesia Reactions: No Infectious Disease History: No Infectious Disease History: Denies: Traveled Outside the [place] in Last 30 Days - Family History Known Family History: Positive: Cardiac Disease - Social History Lives: Alone Alcohol Use: Occasionally Hx Substance Use: Yes Substance Use Type: Reports: Marijuana Hx Tobacco Use: Yes Smoking Status (MU): Light Every Day Tobacco Smoker Amount Used/How Often: 1/2 pack a day for 18 yrs Review of Systems Negative: Blurred Vision Positive: Other - Positive difficulty moving the jaw. Negative: Ear Ache Negative: Vomiting, Nausea Positive: Myalgia - Left sided neck pain that radiates to the occipital region and right sided facial pain, Other - Positive lump on the back of the neck/ occipital region Positive: Headache All Other Systems Reviewed And Are Negative: Yes Physical Exam - Summary Physical Exam Summary: Constitutional: Well-developed, Well-nourished, Alert. (-) Distressed Skin: Warm, Dry HENT: Normocephalic; Atraumatic Eyes: Conjunctiva normal Neck: Musculoskeletal ROM normal neck. (-) JVD, (-) Stridor, (-) Tracheal deviation Cardio: Rhythm regular, rate normal, Heart sounds normal; Intact distal pulses; The pedal pulses are 2+ and symmetric. Radial pulses are 2+ and symmetric. (-) Murmur Pulmonary/Chest wall: Effort normal. (-) Respiratory distress, (-) Wheezes, (-) Rales Abd: Soft, (-) tenderness, (-) Distension, (-) Guarding, (-) Rebound Musculoskeletal: (-) Edema. Tenderness over the region of the right temporal artery which is slightly enlarged in comparison to the left, pain in the region of the left TMJ joint, but patient is able to open/close jaw without pain, tenderness over the occiput and upper trapezius muscle. Lymph: (-) Cervical adenopathy Neuro: Alert, Oriented x3 Psych: Mood and affect Normal Triage Information Reviewed: Yes Vital Signs On Initial Exam: Initial Vitals Temp Pulse Resp BP Pulse Ox 98.8 F 106 16 126/95 97 12/21/19 17:41 12/21/19 17:41 12/21/19 17:41 12/21/19 17:41 12/21/19 17:41 Vital Signs Reviewed: Yes - Meliza Coma Scale Best Eye Response: 4 - Spontaneous Best Motor Response: 6 - Obeys Commands Best Verbal Response: 5 - Oriented Coma Scale Total: 15 Procedures - Sedation Patient Received Moderate/Deep Sedation with Procedure: No Diagnostics - Vital Signs Vital Signs Temp Pulse Resp BP Pulse Ox 12/21/19 17:41 98.8 F 106 16 126/95 97 - Laboratory Result Diagrams: 12/21/19 18:17 12/21/19 18:17 Lab Statement: Any lab studies that have been ordered have been reviewed, and results considered in the medical decision making process. - CT Brain CT CT Interpretation Completed By: Radiologist Summary of CT Findings: Brain CT IMPRESSION: No acute intracranial abnormality. Reviewed by Dr. Ramirez. Complex Multi-Symp Course/Dx Course Of Treatment: Patient is a 64 y/o F presenting to the ED for a chief complaint of headache that began 3 months ago which she initially believed was related to her vision. Patient reports left-sided neck pain that radiates to the occipital region and difficulty moving the jaw. On 12/20/19, patient noticed a lump on the back of the neck/occipital region that she describes as a vein. She reports right-sided facial pain that worsens with eating that began on 12/20/19 and continued into 12/21/19. Patient denies ear pain, nausea, vomiting, or blurred vision. She denies recent head injury. Previously, patient was seen at Urgent Care and recommended to be seen at [facility]. Recently, patient saw Dr. 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 PMHx is significant for a cervical cancer for which she had radiation therapy. She states her health problems are related to being over-radiated during the radiation therapy. History of cardiac disease, COPD, or asthma is denied. PSHx is significant for cervical fusion 19 years ago. FMHx is significant for cardiac disease. She admits tobacco use. On exam, tenderness over the region of the right temporal artery which is slightly enlarged in comparison to the left, pain in the region of the left TMJ joint, but patient is able to open/close jaw without pain, tenderness over the occiput and upper trapezius muscle. In the ED course, patient was given Toradol 30 mg IV PUSH, Solu-Medrol 250 mg IV, and IV fluids. Brain CT IMPRESSION: No acute intracranial abnormality. Laboratory abnormal findings: WBC 12.5, plt count 521 , CRP 97. All other abnormal lab results are not pertinent to current cc. At 19:17, Dr. Baxter states the presentation is convincing enough to treat for GCA. Will give 250 mg Solu-Medrol in the ED and discharge with script for prednisone 60 mg daily for [address] Baxter to follow up tomorrow to arrange for a temporal artery biopsy. Patient is to return to the ED if she develops vision loss. Patient will be discharged with a diagnosis of GCA. Follow up with Dr. Baxter and PCP in 2-3 days. - Diagnoses Provider Diagnoses: GCA (giant cell arteritis) - Physician Notifications Discussed Care Of Patient With: Rao Baxter - At 19:17, Dr. Rao Baxter states the presentation is convincing enough to treat for GCA. Will give 250 mg Solu-Medrol in the ED and discharge with script for prednisone [address] Baxter to follow up tomorrow to arrange for a temporal artery biopsy. Patient is to return to the ED if she develops vision loss. Time Discussed With Above Provider: 19:17 Discharge ED - Sign-Out/Discharge Documenting (check all that apply): Patient Departure - Discharge - Discharge Plan Condition: Stable Disposition: HOME Prescriptions: predniSONE 20 mg TAB [Deltasone 20 MG TAB*] 60 mg PO DAILY #21 tab Patient Education Materials: Temporal Arteritis (ED) Referrals: Leila Jane NP [Primary Care Provider] - Rao Baxter MD [Medical Doctor] - Additional Instructions: RETURN TO THE EMERGENCY DEPARTMENT FOR VISION LOSS, OR CHANGING OR WORSENING SYMPTOMS. Follow up with your primary care physician in 2-3 days and follow up with Dr. Baxter. - Billing Disposition and Condition Condition: STABLE Disposition: Home - Attestation Statements Document Initiated by Scribe: Yes Documenting Scribe: Silvia Fernandez Provider For Whom Scribe is Documenting (Include Credential): Arian Ramirez DO Scribe Attestation: I, Silvia Fernandez, scribed for Arian Ramirez DO on 12/21/19 at 1937. Scribe Documentation Reviewed: Yes Provider Attestation: The documentation as recorded by the scribe, Silvia Fernandez accurately reflects the service I personally performed and the decisions made by me, Arian Ramirez DO Status of Scribe Document: Viewed
[2019-12-21] MEDS ORDERED: Ketorolac INJ* 30 MG/ML 1 ML VIAL IV PUSH ONE (18:16)
[2019-12-21] MEDS ORDERED: NS 0.9% 1000 ML** 1,000 ML IV ONE (18:16)
[2019-12-21 18:27] LABS: ABS Basophils 0.1 10^3/ul (0-0.2); ABS Eosinophils 0.1 10^3/ul (0-0.6); ABS Lymphocytes 1.7 10^3/ul (1.0-4.8); ABS Monocytes 1.1 10^3/ul (0-0.8); ABS Neutrophils 9.5 10^3/ul (1.5-7.7); Eosinophil % 0.7 %; Hematocrit 36 % (35-47); Hemoglobin 12.2 g/dL (12.0-16.0); Lymphocyte % 13.6 %; Mean Corpuscular HGB Conc 34 g/dL (31-36); Mean Corpuscular Hemoglobin 31 pg (27-31); Mean Corpuscular Volume 92 fL (80-97); Mean Platelet Volume 6.4 fL (7.4-10.4); Platelet Count 521 10^3/uL (150-450); Red Blood Count 3.96 10^6 /uL (3.70-4.87); Red Cell Distribution Width 13 % (10-15); White Blood Count 12.5 10^3/uL (3.5-10.8)
[2019-12-21 18:38] LABS: Albumin/Globulin Ratio 1.1 (1-3); BUN/Creatinine Ratio 20.7 (8-20); Calcium 9.8 mg/dL (8.6-10.3); EGFR African American 79.3 (>60); EGFR Non-African American 65.6 (>60); Globulin 3.5 g/dL (2-4); Potassium 4.2 mmol/L (3.5-5.0); Total Bilirubin 0.3 mg/dL (0.2-1.0); Total Protein 7.5 g/dL (6.4-8.9)
[2019-12-21] MEDS ORDERED: methylPREDNISolone 125 MG* 2 ML VIAL IV ONE (19:19)
[2019-12-21 19:32] LABS: Erythrocyte Sed Rate 81 mm/Hr (0-29)
[2019-12-21 19:44] VITALS: BP 124/75
== END 2019-12-21 19:43 | disposition home or self-care (01) ==
LOC: ED 17:39
DX: M31.6 Other giant cell arteritis (principal); R51 Headache; F17.210 Nicotine dependence, cigarettes, uncomplicated; Z87.442 Personal history of urinary calculi; Z79.899 Other long term (current) drug therapy; Z79.52 Long term (current) use of systemic steroids; Z88.0 Allergy status to penicillin; Z88.2 Allergy status to sulfonamides; Z85.41 Personal history of malignant neoplasm of cervix uteri
CPT/HCPCS: 36415; 70450; 80053; 85025; 85652; 86140; 96361; 96374; 96375; 99283; J1885; J2930

== ENCOUNTER 2020-06-08 21:27 | Inpatient (IN) ==
[2020-06-08 22:41] LABS: Hematocrit 37 % (35-47); Hemoglobin 12.2 g/dL (12.0-16.0); Mean Corpuscular HGB Conc 33 g/dL (31-36); Mean Corpuscular Hemoglobin 32 pg (27-31); Mean Corpuscular Volume 97 fL (80-97); Mean Platelet Volume 7.6 fL (7.4-10.4); Platelet Count 268 10^3/uL (150-450); Red Blood Count 3.77 10^6 /uL (3.70-4.87); Red Cell Distribution Width 13 % (10-15); White Blood Count 26.8 10^3/uL (3.5-10.8)
[2020-06-08 22:51] LABS: INR 1.1 (0.82-1.09)
[2020-06-08 23:02] LABS: Urine Appearance Clear; Urine Bilirubin Negative (Negative); Urine Blood 1+ (Negative); Urine Color Yellow; Urine Glucose Negative (Negative); Urine Ketones Negative (Negative); Urine Nitrite Negative (Negative); Urine Protein Negative (Negative); Urine Specific Gravity 1.005 (1.010-1.030); Urine Urobilinogen Negative (Negative)
[2020-06-08 23:09] LABS: Urine Bacteria 1+ (Absent); Urine Red Blood Cell Trace(0-2/hpf) (Absent); Urine Squamous Epithelial Cell Present (Absent); Urine White Blood Cell Trace(0-5/hpf) (Absent)
[2020-06-08 23:10] LABS: Albumin/Globulin Ratio 1.9 (1-3); BUN/Creatinine Ratio 18.3 (8-20); C Reactive Protein 83.76 mg/L (<8.01); Calcium 7.1 mg/dL (8.6-10.3); EGFR African American 54.6 (>60); EGFR Non-African American 45.1 (>60); Globulin 1.6 g/dL (2-4); Potassium 4.5 mmol/L (3.5-5.0); Total Bilirubin 0.4 mg/dL (0.2-1.0); Total Protein 4.6 g/dL (6.4-8.9)
[2020-06-08] MEDS ORDERED: Iodixanol (CONTRAST) 320 MG/ML 100 ML SDV IV ONE (23:39)
[2020-06-09 01:59] LABS: ABS Lymphocytes 0.4 10^3/ul (1.0-4.8); ABS Monocytes 0.7 10^3/ul (0-0.8); ABS Neutrophils 25.7 10^3/ul (1.5-7.7); Lymphocyte % 1.4 %
[2020-06-09] MEDS: Hydrocortisone INJ 100 MG/2ML 2 ML VIAL IV ONE ×2 (04:31→04:32)
[2020-06-09] MEDS ORDERED: Lactated Ringers 1000 ml BAG 1,000 ML IV ONE (04:32)
[2020-06-09] MEDS ORDERED: Lidocaine 2% PF 5 ML VIAL ONE (04:50)
[2020-06-09] MEDS ORDERED: Rocuronium 50 mg VIAL 10 mg/ml 5 ml VIAL (50 mg) ONE (04:51)
[2020-06-09] MEDS ORDERED: Dexmedetomidine 200 mcg/2 ml 2 ml VIAL (200 mcg) ONE (04:51)
[2020-06-09] MEDS ORDERED: Propofol 10 MG/ML 20 ML BTL ONE (04:53)
[2020-06-09] MEDS ORDERED: Bupivacaine 0.25% SDV 30 ML ONE (05:33)
[2020-06-09] MEDS ORDERED: Acetaminophen IV 1 GM/100ML 100 ML ONE (08:04)
[2020-06-09] MEDS ORDERED: Naloxone 0.4 mg VIAL 0.4 mg/ml 1 ml VIAL IV PUSH PRN (08:31)
[2020-06-09] MEDS ORDERED: HYDROmorphone 1 MG/1 ML SYRINGE IV PRN (08:37)
[2020-06-09] MEDS ORDERED: Ondansetron 4 mg VIAL 2 MG/ML 2 ml VIAL IV PRN (08:37)
[2020-06-09] MEDS ORDERED: Naloxone 0.4 mg VIAL 0.4 mg/ml 1 ml VIAL IV PRN (08:37)
[2020-06-09] MEDS ORDERED: Levofloxacin 500 MG IVPREMIX 500 MG/100 ML BAG IVPB SCH (10:00)
[2020-06-09] MEDS ORDERED: Morphine 2 MG/ML SYRINGE IV ONE (10:13)
[2020-06-09] MEDS: Pantoprazole VIAL 40 MG VIAL IV SCH (10:23)
[2020-06-09] MEDS: Hydrocortisone INJ 100 MG/2ML 2 ML VIAL IV SCH ×2 (10:23→16:47)
[2020-06-09] MEDS ORDERED: Morphine PCA ADULT 5 MG/ML 30 ML PCA SCH (10:30)
[2020-06-09] MEDS ORDERED: metroNIDAZOLE IV 500 MG/100ML 500 MG/100 ML BAG IVPB SCH (11:00)
[2020-06-09] MEDS ORDERED: Hydrocortisone INJ 100 MG/2ML 2 ML VIAL IV SCH (12:30)
[2020-06-09] MEDS: Meropenem 1 GM PREMIX(*) 1 GM/50 ML BAG IV SCH (16:47)
[2020-06-10] MEDS: Hydrocortisone INJ 100 MG/2ML 2 ML VIAL IV SCH ×2 (01:42→14:52)
[2020-06-10] MEDS: Morphine 2 MG/ML SYRINGE IV PRN ×3 (01:42→22:07)
[2020-06-10] MEDS: Meropenem 1 GM PREMIX(*) 1 GM/50 ML BAG IV SCH ×2 (05:47→17:10)
[2020-06-10 06:03] LABS: ABS Lymphocytes 0.3 10^3/ul (1.0-4.8); ABS Monocytes 0.3 10^3/ul (0-0.8); ABS Neutrophils 16.9 10^3/ul (1.5-7.7); Hematocrit 33 % (35-47); Hemoglobin 11.1 g/dL (12.0-16.0); Lymphocyte % 1.6 %; Mean Corpuscular HGB Conc 34 g/dL (31-36); Mean Corpuscular Hemoglobin 33 pg (27-31); Mean Corpuscular Volume 97 fL (80-97); Mean Platelet Volume 7.9 fL (7.4-10.4); Platelet Count 222 10^3/uL (150-450); Red Blood Count 3.41 10^6 /uL (3.70-4.87); Red Cell Distribution Width 13 % (10-15); White Blood Count 17.6 10^3/uL (3.5-10.8)
[2020-06-10 06:20] LABS: Calcium 6.6 mg/dL (8.6-10.3); EGFR Non-African American 75.2 (>60); Potassium 3.7 mmol/L (3.5-5.0)
[2020-06-10 08:06] LABS: Magnesium 1.5 mg/dL (1.9-2.7)
[2020-06-10] MEDS ORDERED: Magnesium Sulfate 2 gm BAG 2 GM/50 ML BAG IVPB ONE (08:12)
[2020-06-10] MEDS: Pantoprazole VIAL 40 MG VIAL IV SCH (09:26)
[2020-06-10] MEDS: D5W 1/2 NS KCl 20 meq 1000 ml 1,000 ML IV SCH (13:07)
[2020-06-11] MEDS: D5W 1/2 NS KCl 20 meq 1000 ml 1,000 ML IV SCH (01:39)
[2020-06-11] MEDS: Hydrocortisone INJ 100 MG/2ML 2 ML VIAL IV SCH ×2 (01:46→14:47)
[2020-06-11] MEDS: Meropenem 1 GM PREMIX(*) 1 GM/50 ML BAG IV SCH (05:09)
[2020-06-11 06:23] LABS: ABS Lymphocytes 0.3 10^3/ul (1.0-4.8); ABS Monocytes 0.4 10^3/ul (0-0.8); ABS Neutrophils 14.2 10^3/ul (1.5-7.7); Eosinophil % 0.1 %; Hematocrit 33 % (35-47); Hemoglobin 11.1 g/dL (12.0-16.0); Lymphocyte % 2.3 %; Mean Corpuscular HGB Conc 34 g/dL (31-36); Mean Corpuscular Hemoglobin 32 pg (27-31); Mean Corpuscular Volume 96 fL (80-97); Mean Platelet Volume 8.1 fL (7.4-10.4); Nucleated Red Blood Cells % 0.1; Platelet Count 230 10^3/uL (150-450); Red Blood Count 3.46 10^6 /uL (3.70-4.87); Red Cell Distribution Width 13 % (10-15)
[2020-06-11 06:41] LABS: BUN/Creatinine Ratio 27.4 (8-20); EGFR African American 116.9 (>60); EGFR Non-African American 96.6 (>60); Potassium 3.6 mmol/L (3.5-5.0)
[2020-06-11 06:43] LABS: Calcium 6.4 mg/dL (8.6-10.3)
[2020-06-11] MEDS ORDERED: Calcium Gluconate 2 GM in NS 0.9% 100 ml BAG 100 ML IV ONE (08:00)
[2020-06-11] MEDS ORDERED: D5W 1/2 NS KCl 20 meq 1000 ml 1,000 ML IV SCH (12:31)
[2020-06-11] MEDS: cefTRIAXone 1 gm/50 mL NS BAG 1 GM/50 ML BAG IVPB SCH (13:37)
[2020-06-11] MEDS: metroNIDAZOLE IV 500 MG/100ML 500 MG/100 ML BAG IVPB SCH (20:24)
[2020-06-12] MEDS: Hydrocortisone INJ 100 MG/2ML 2 ML VIAL IV SCH ×2 (02:39→13:57)
[2020-06-12 06:02] LABS: ABS Lymphocytes 0.7 10^3/ul (1.0-4.8); ABS Monocytes 0.7 10^3/ul (0-0.8); ABS Neutrophils 8.7 10^3/ul (1.5-7.7); Hematocrit 36 % (35-47); Hemoglobin 12.6 g/dL (12.0-16.0); Lymphocyte % 6.6 %; Mean Corpuscular HGB Conc 35 g/dL (31-36); Mean Corpuscular Hemoglobin 33 pg (27-31); Mean Corpuscular Volume 95 fL (80-97); Platelet Count 259 10^3/uL (150-450); Red Blood Count 3.81 10^6 /uL (3.70-4.87); Red Cell Distribution Width 13 % (10-15); White Blood Count 10.1 10^3/uL (3.5-10.8)
[2020-06-12] MEDS: metroNIDAZOLE IV 500 MG/100ML 500 MG/100 ML BAG IVPB SCH ×2 (08:46→20:46)
[2020-06-12 08:48] LABS: BUN/Creatinine Ratio 19.3 (8-20); EGFR African American 128.8 (>60); EGFR Non-African American 106.4 (>60); Magnesium 1.8 mg/dL (1.9-2.7); Potassium 3.2 mmol/L (3.5-5.0)
[2020-06-12] MEDS ORDERED: Magnesium Sulfate 2 gm BAG 2 GM/50 ML BAG IVPB ONE (09:18)
[2020-06-12] MEDS ORDERED: Calcium Gluconate 2 GM in NS 0.9% 100 ml BAG 100 ML IV ONE (09:18)
[2020-06-12 10:24] LABS: C Reactive Protein 10.46 mg/L (<8.01)
[2020-06-12] MEDS: cefTRIAXone 1 gm/50 mL NS BAG 1 GM/50 ML BAG IVPB SCH (13:43)
[2020-06-13] MEDS: Hydrocortisone INJ 100 MG/2ML 2 ML VIAL IV SCH ×2 (01:57→15:46)
[2020-06-13 06:10] LABS: Hematocrit 34 % (35-47); Hemoglobin 11.9 g/dL (12.0-16.0); Mean Corpuscular HGB Conc 36 g/dL (31-36); Mean Corpuscular Hemoglobin 33 pg (27-31); Mean Corpuscular Volume 94 fL (80-97); Mean Platelet Volume 8.1 fL (7.4-10.4); Platelet Count 264 10^3/uL (150-450); Red Blood Count 3.58 10^6 /uL (3.70-4.87); Red Cell Distribution Width 13 % (10-15); White Blood Count 8.6 10^3/uL (3.5-10.8)
[2020-06-13 06:20] LABS: Calcium 6.8 mg/dL (8.6-10.3); EGFR African American 121.4 (>60); EGFR Non-African American 100.3 (>60); Magnesium 1.6 mg/dL (1.9-2.7)
[2020-06-13 06:27] LABS: Potassium 2.4 mmol/L (3.5-5.0)
[2020-06-13 06:59] LABS: ABS Lymphocytes 0.8 10^3/ul (1.0-4.8); ABS Monocytes 0.8 10^3/ul (0-0.8); Lymphocyte % 9.2 %; Nucleated Red Blood Cells % 0.1
[2020-06-13] MEDS: KCL 20 MEQ/100 ML IVPREMIX 20 MEQ/100 ML BAG IV SCH ×4 (07:10→18:48)
[2020-06-13] MEDS: metroNIDAZOLE IV 500 MG/100ML 500 MG/100 ML BAG IVPB SCH ×2 (10:02→21:39)
[2020-06-13] MEDS: cefTRIAXone 1 gm/50 mL NS BAG 1 GM/50 ML BAG IVPB SCH (14:47)
[2020-06-13 17:52] LABS: BUN/Creatinine Ratio 13.7 (8-20); Calcium 6.6 mg/dL (8.6-10.3); EGFR African American 96.8 (>60); Magnesium 1.4 mg/dL (1.9-2.7); Potassium 2.9 mmol/L (3.5-5.0)
[2020-06-14] MEDS: Hydrocortisone INJ 100 MG/2ML 2 ML VIAL IV SCH ×2 (03:27→16:40)
[2020-06-14 07:06] LABS: Hematocrit 34 % (35-47); Hemoglobin 12.1 g/dL (12.0-16.0); Mean Corpuscular HGB Conc 36 g/dL (31-36); Mean Corpuscular Hemoglobin 34 pg (27-31); Mean Corpuscular Volume 94 fL (80-97); Mean Platelet Volume 8.4 fL (7.4-10.4); Platelet Count 282 10^3/uL (150-450); Red Blood Count 3.61 10^6 /uL (3.70-4.87); Red Cell Distribution Width 13 % (10-15)
[2020-06-14 07:39] LABS: Calcium 6.5 mg/dL (8.6-10.3); Magnesium 1.4 mg/dL (1.9-2.7)
[2020-06-14 07:45] LABS: BUN/Creatinine Ratio 16.9 (8-20); EGFR African American 123.8 (>60); EGFR Non-African American 102.3 (>60)
[2020-06-14] MEDS: metroNIDAZOLE IV 500 MG/100ML 500 MG/100 ML BAG IVPB SCH ×2 (08:25→21:43)
[2020-06-14] MEDS: Potassium Chlor 20 meq TAB.ER PO SCH ×2 (08:45→14:54)
[2020-06-14 09:37] LABS: Potassium 2.7 mmol/L (3.5-5.0)
[2020-06-14 09:40] LABS: ABS Monocytes 1.1 10^3/ul (0-0.8); ABS Neutrophils 7.9 10^3/ul (1.5-7.7); Eosinophil % 0.3 %; Lymphocyte % 10.2 %
[2020-06-14] MEDS: Magnesium Sulfate 2 gm BAG 2 GM/50 ML BAG IVPB SCH ×2 (10:11→13:45)
[2020-06-14 10:28] LABS: Polychromasia 1+
[2020-06-14] MEDS: KCL 20 MEQ/100 ML IVPREMIX 20 MEQ/100 ML BAG IV SCH ×2 (11:13→16:40)
[2020-06-14] MEDS: cefTRIAXone 1 gm/50 mL NS BAG 1 GM/50 ML BAG IVPB SCH (12:44)
[2020-06-15 05:48] LABS: Albumin 2.9 g/dL (3.2-5.2); Albumin/Globulin Ratio 1.9 (1-3); EGFR African American 121.4 (>60); EGFR Non-African American 100.3 (>60); Globulin 1.5 g/dL (2-4); Total Bilirubin 0.3 mg/dL (0.2-1.0); Total Protein 4.4 g/dL (6.4-8.9)
[2020-06-15] MEDS: metroNIDAZOLE IV 500 MG/100ML 500 MG/100 ML BAG IVPB SCH ×2 (08:41→21:42)
[2020-06-15] MEDS: Potassium Chlor 20 meq TAB.ER PO SCH (08:42)
[2020-06-15] MEDS: KCL 20 MEQ/100 ML IVPREMIX 20 MEQ/100 ML BAG IV SCH ×2 (09:42→12:39)
[2020-06-15] MEDS ORDERED: Calcium Gluconate 2 GM in NS 0.9% 100 ml BAG 100 ML IV ONE (11:30)
[2020-06-15] MEDS ORDERED: Potassium Chloride LIQUID 20 MEQ/15 ML LIQUID PO ONE (12:51)
[2020-06-15] MEDS: Heparin 5000 UNITS/ML 1 mL VIAL SUBCUT SCH ×2 (13:55→21:51)
[2020-06-15] MEDS: cefTRIAXone 1 gm/50 mL NS BAG 1 GM/50 ML BAG IVPB SCH ×2 (14:25→17:00)
[2020-06-15 17:09] LABS: Vitamin D Total 25(OH) 13.8 ng/mL (20-50)
[2020-06-15 20:22] LABS: BUN/Creatinine Ratio 18.5 (8-20); EGFR African American 110.7 (>60); EGFR Non-African American 91.5 (>60); Magnesium 1.6 mg/dL (1.9-2.7); Potassium 3.6 mmol/L (3.5-5.0)
[2020-06-16] MEDS: Heparin 5000 UNITS/ML 1 mL VIAL SUBCUT SCH ×2 (05:46→16:11)
[2020-06-16] MEDS ORDERED: Magnesium Sulfate 2 gm BAG 2 GM/50 ML BAG IVPB ONE (06:05)
[2020-06-16] MEDS: Potassium Chlor 20 meq TAB.ER PO SCH (08:34)
[2020-06-16] MEDS ORDERED: Psyllium PAK PO SCH (09:00)
[2020-06-16] MEDS: metroNIDAZOLE IV 500 MG/100ML 500 MG/100 ML BAG IVPB SCH (09:25)
[2020-06-16 10:48] LABS: BUN/Creatinine Ratio 15.4 (8-20); Calcium 7.1 mg/dL (8.6-10.3); EGFR African American 110.7 (>60); EGFR Non-African American 91.5 (>60); Magnesium 3.1 mg/dL (1.9-2.7); Potassium 3.6 mmol/L (3.5-5.0)
[2020-06-16] MEDS ORDERED: Calcium Gluconate 2 GM in NS 0.9% 100 ml BAG 100 ML IV ONE (12:30)
[2020-06-16 15:51] VITALS: BP 119/78
[2020-06-16 16:02] LABS: Calcium 7.6 mg/dL (8.6-10.3); EGFR African American 93.8 (>60); EGFR Non-African American 77.6 (>60); Potassium 4.2 mmol/L (3.5-5.0)
[2020-06-16] MEDS: cefTRIAXone 1 gm/50 mL NS BAG 1 GM/50 ML BAG IVPB SCH (16:11)
== END 2020-06-16 17:15 | disposition home or self-care (01) | DRG 854 ==
LOC: ED 21:27 → OR 06-09 04:28 → ICU 06-09 04:32 → OR 06-09 04:40 → SSU 06-10 12:23
PROVIDERS: ADMIT Surgery; ATTEND Internal Medicine

== ENCOUNTER 2021-01-08 06:03 | Inpatient (IN) ==
[~2021-01-08 06:03] MED LIST changes: -Acetaminophen TAB* 325 MG PO PRN; -Buffered Lidocaine 0.9% SYRIN* 5 ML/SYR SYRINGE INTRADERM ONE; +Buffered Lidocaine 1% SYRIN 1 ml INTRADERM ONE; -Dexamethasone IV* 4 MG/ML 1 ML (4 MG) ONE; -DiMENhydriNATE IV* 50 MG/ML VIAL IV PUSH PRN; -DiMENhydriNATE IV* 50 MG/ML VIAL ONE; -Famotidine IV* 10 MG/ML 2 ML (20 mg) IV ONE; -Famotidine IV* 10 MG/ML 2 ML (20 mg) ONE; -HYDROmorphone INJ1* 1 MG/ML SYRINGE IV PRN; -Ketorolac INJ* 30 MG/ML 1 ML VIAL ONE; +Lactated Ringers 1000 ml BAG 1,000 ML IV SCH; -Levofloxacin 500 MG IVPREMIX(* 500 MG/100 ML BAG IVPB ONE; -Lidocaine 2% PF * 5 ML VIAL ONE; -Midazolam* 1 MG/ML 2 ML VIAL (2 MG) ONE; -Naloxone* 0.4 MG/ML 1 ML VIAL IV PRN; -Ondansetron INJ* 2 MG/ML VIAL ONE; -Propofol* 10 MG/ML 20 ML BTL IV PUSH ONE; -fentaNYL* 50 MCG/ML 2 ML VIAL (100 MCG VIAL) ONE
[2021-01-08] MEDS ORDERED: Clindamycin 900 MG/D5W BAG 900 MG/50 ML BAG IVPB ONE (06:41)
[2021-01-08] MEDS ORDERED: GENTAMICIN ADULT IVPB ONE (07:00)
[2021-01-08] MEDS ORDERED: NS 0.9% IVPB ONE (07:00)
[2021-01-08] MEDS ORDERED: Ondansetron 4 mg VIAL 2 MG/ML 2 ml VIAL ONE (07:09)
[2021-01-08] MEDS ORDERED: Propofol 10 MG/ML 20 ML BTL ONE (07:09)
[2021-01-08] MEDS ORDERED: Lidocaine 2% PF 5 ML VIAL ONE (07:09)
[2021-01-08] MEDS ORDERED: Midazolam 2 mg/2 ml VIAL 1 mg/ml 2 ml VIAL (2 mg) ONE (07:09)
[2021-01-08] MEDS ORDERED: Dexamethasone IV 4 MG/ML VIAL 1 ml VIAL ONE (07:09)
[2021-01-08] MEDS ORDERED: fentaNYL 250 mcg/5 ml 50 MCG/ML 5 ml VIAL (250 MCG) ONE (07:10)
[2021-01-08] MEDS ORDERED: Rocuronium 50 mg VIAL 10 mg/ml 5 ml VIAL (50 mg) ONE ×2 (07:10→10:18)
[2021-01-08] MEDS ORDERED: Bupivacaine 0.25% SDV 30 ML ONE (07:12)
[2021-01-08] MEDS ORDERED: Heparin 5000 UNITS/ML 1 mL VIAL ONE (07:27)
[2021-01-08] MEDS ORDERED: Phenylephrine 40 mcg/mL 10mL (400mcg) SYRINGE ONE (07:54)
[2021-01-08] MEDS ORDERED: fentaNYL 100 mcg/2 ml 50 MCG/ML VIAL IV PRN (11:03)
[2021-01-08] MEDS ORDERED: Ondansetron 4 mg VIAL 2 MG/ML 2 ml VIAL IV PRN (11:09)
[2021-01-08] MEDS ORDERED: Morphine 2 MG/ML SYRINGE IV PRN (11:13)
[2021-01-08] MEDS ORDERED: HYDROmorphone 1 MG/1 ML SYRINGE ONE (11:28)
[2021-01-08] MEDS: HYDROmorphone 1 MG/1 ML SYRINGE IV PRN ×2 (11:30→11:43)
[2021-01-08 11:49] LABS: Urine Appearance Cloudy; Urine Bilirubin Negative (Negative); Urine Blood 3+ (Negative); Urine Color Yellow; Urine Glucose Negative (Negative); Urine Ketones Negative (Negative); Urine Nitrite Negative (Negative); Urine Protein 2+(100 mg/dL) (Negative); Urine Specific Gravity 1.011 (1.002-1.030); Urine Urobilinogen Negative (Negative)
[2021-01-08 12:05] LABS: Urine Bacteria 1+ (Absent); Urine Red Blood Cell 3+(>10/hpf) (Absent); Urine White Blood Cell 3+(>20/hpf) (Absent)
[2021-01-08] MEDS: Lactated Ringers 1000 ml BAG 1,000 ML IV SCH ×2 (13:38→21:09)
[2021-01-09] MEDS: Calcium/Vitamin D TAB 250/125 TAB PO SCH (08:48)
[2021-01-09] MEDS: Cholecalciferol (VIT D3) 1,000 unit TAB PO SCH (08:48)
[2021-01-09] MEDS: Magnesium Chloride EC 64 mgTAB PO SCH (08:51)
[2021-01-09 13:47] LABS: ABS Basophils 0.1 10^3/ul (0-0.2); ABS Lymphocytes 1.2 10^3/ul (1.0-4.8); ABS Monocytes 0.9 10^3/ul (0-0.8); ABS Neutrophils 11.7 10^3/ul (1.5-7.7); Eosinophil % 0.3 %; Hematocrit 35 % (35-47); Hemoglobin 11.6 g/dL (12.0-16.0); Lymphocyte % 8.6 %; Mean Corpuscular HGB Conc 33 g/dL (31-36); Mean Corpuscular Hemoglobin 30 pg (27-31); Mean Corpuscular Volume 92 fL (80-97); Platelet Count 367 10^3/uL (150-450); Red Blood Count 3.85 10^6 /uL (3.70-4.87); Red Cell Distribution Width 14 % (10-15)
[2021-01-09 14:01] LABS: Calcium 8.5 mg/dL (8.6-10.3); Potassium 3.7 mmol/L (3.5-5.0)
[2021-01-09 14:07] LABS: EGFR African American 59.5 (>60); EGFR Non-African American 49.2 (>60)
[2021-01-10 07:30] VITALS: BP 109/67
[2021-01-10] MEDS: Calcium/Vitamin D TAB 250/125 TAB PO SCH (09:08)
[2021-01-10] MEDS: Cholecalciferol (VIT D3) 1,000 unit TAB PO SCH (09:08)
[2021-01-10] MEDS: Magnesium Chloride EC 64 mgTAB PO SCH (09:09)
== END 2021-01-10 11:48 | disposition home or self-care (01) | DRG 331 ==
LOC: OR 06:03 → SSU 11:04
PROVIDERS: ADMIT Surgery; ATTEND Surgery